=== PATIENT | female | born 1985 | race Caucasian/White ===

== ENCOUNTER 2018-11-26 19:15 | Observation (INO) | payer OTHER ==
[~2018-11-26] VITALS: Ht 158 cm; Wt 80.7 kg
[~2018-11-26 19:15] MED LIST: IBUP-2070 PO; PERCT PO; PNV1TABL54 PO
[2018-11-26 20:00] VITALS: BP 120/70
== END 2018-11-26 21:37 | disposition home or self-care (01) ==
LOC: 4S 19:15 → INTOOBSV 19:15 → OBSVTOIN 19:15
PROVIDERS: ADMIT Obstetrics & Gynecology; ATTEND Obstetrics & Gynecology
DX: O62.9 Abnormality of forces of labor, unspecified (principal); O09.523 Supervision of elderly multigravida, third trimester; Z3A.39 39 weeks gestation of pregnancy

== ENCOUNTER 2018-11-27 06:07 | Inpatient (IN) | payer OTHER ==
[~2018-11-27] VITALS: Ht 157.5 cm; Wt 80.7 kg
[~2018-11-27 06:07] MED LIST changes: +RINGERS SOLUTION,LACTATED 1,000 ML IV ONE
[2018-11-27] MEDS ORDERED: CITRIC ACID/SODIUM CITRATE 30 ML SOLUTION UDCUP PO ONE (06:15)
[2018-11-27] MEDS ORDERED: METOCLOPRAMIDE HCL 5 MG/ML 2 ML VIAL IVP ONE (06:15)
[2018-11-27 06:55] LABS: BASOPHILS % (AUTO) 0.4 % (0.0-2.0); EOSINOPHILS % (AUTO) 2.8 % (1.0-6.0); HEMATOCRIT 38.3 % (36-46); HEMOGLOBIN 12.2 g/dL (12.0-16.0); LYMPHOCYTES # (AUTO) 2.3 K/uL (1.0-4.8); LYMPHOCYTES % (AUTO) 26.1 % (22.0-44.0); MEAN CORPUSCULAR HEMOGLOBIN 28.2 pg (26.0-34.0); MEAN CORPUSCULAR HGB CONC 31.9 G/dL (31.0-37.0); MEAN CORPUSCULAR VOLUME 89 fL (80-100); MONOCYTES # (AUTO) 0.6 K/uL (0.1-1.0); MONOCYTES % (AUTO) 7.1 % (2.0-9.0); NEUTROPHILS # (AUTO) 5.7 K/uL (1.8-7.7); NEUTROPHILS % (AUTO) 63.6 % (40.0-70.0); PLATELET COUNT (AUTO) 239 K/uL (150-450); RED BLOOD CELL COUNT(AUTO) 4.33 MIL/uL (4.00-5.20); RED CELL DISTRIBUTION WIDTH 14.8 % (11.5-14.5)
[2018-11-27] MEDS ORDERED: ACETAMINOPHEN 1000 MG/ISO-OSM 100 ML IV ONE (07:12)
[2018-11-27] MEDS ORDERED: FentaNYL CITRATE-PF 100 MCG/2 ML VIAL IVP PRN ×2 (08:30)
[2018-11-27] MEDS ORDERED: ONDANSETRON HCL 4 MG/2 ML VIAL IVP PRN (08:30)
[2018-11-27] MEDS ORDERED: MEPERIDINE-PF 25 MG/ML VIAL IVP PRN (08:30)
[2018-11-27] MEDS ORDERED: NALOXONE HCL 0.4 MG/ML VIAL IVP PRN (08:30)
[2018-11-27] MEDS ORDERED: DiphenhydrAMINE HCL 50 MG/ML VIAL IVP PRN (08:30)
[2018-11-27] MEDS ORDERED: OxyCODONE HCL/ACETAMINOPHEN 10-325 MG TABLET PO PRN (08:30)
[2018-11-27] MEDS ORDERED: HYDROmorphone 2 MG/ML SYRINGE IVP PRN ×2 (08:30)
[2018-11-27] MEDS ORDERED: LANOLIN 7 GM OINTMENT TP PRN (09:00)
[2018-11-27] MEDS ORDERED: ACETAMINOPHEN/CODEINE 300-30 MG TABLET PO PRN (09:00)
[2018-11-27] MEDS: DEXTROSE 5%-0.45% SODIUM CHL 1,000 ML IV SCH ×3 (14:25→23:34)
[2018-11-27] MEDS: ACETAMINOPHEN 500 MG TABLET PO SCH ×2 (14:29→20:20)
[2018-11-27] MEDS ORDERED: METHYLERGONOVINE MALEATE 0.2 MG/ML VIAL ONE (19:31)
[2018-11-27] MEDS: MAGNESIUM HYDROXIDE SUSPENSION 30 ML UDCUP PO SCH (21:00)
[2018-11-28] MEDS: IBUPROFEN 800 MG TABLET PO SCH ×4 (02:03→22:52)
[2018-11-28] MEDS: ACETAMINOPHEN 500 MG TABLET PO SCH (02:32)
[2018-11-28] MEDS: DEXTROSE 5%-0.45% SODIUM CHL 1,000 ML IV SCH (04:01)
[2018-11-28] MEDS ORDERED: FentaNYL CITRATE-PF 100 MCG/2 ML VIAL IVP ONE (05:44)
[2018-11-28] MEDS ORDERED: EPHEDrine SULFATE 50 MG/ML VIAL IM ONE (05:44)
[2018-11-28] MEDS ORDERED: MORPHINE SULFATE/PF 0.5 MG/ML 10 ML AMP IVP ONE (05:44)
[2018-11-28] MEDS ORDERED: ONDANSETRON HCL 4 MG/2 ML VIAL IVP ONE (05:44)
[2018-11-28] MEDS ORDERED: OXYTOCIN 10 UNITS/ML VIAL IM ONE (05:44)
[2018-11-28] MEDS ORDERED: 0.9% SODIUM CHLORIDE 10 ML VIAL IVP ONE (05:44)
[2018-11-28] MEDS: MAGNESIUM HYDROXIDE SUSPENSION 30 ML UDCUP PO SCH ×2 (09:01→21:32)
[2018-11-28] MEDS: ACETAMINOPHEN/CODEINE 300-30 MG TABLET PO PRN (14:15)
[2018-11-29] MEDS: IBUPROFEN 800 MG TABLET PO SCH ×3 (05:39→20:36)
[2018-11-29] MEDS: MAGNESIUM HYDROXIDE SUSPENSION 30 ML UDCUP PO SCH (13:48)
[2018-11-30] MEDS: IBUPROFEN 800 MG TABLET PO SCH ×2 (02:15→11:00)
[2018-11-30] MEDS: ACETAMINOPHEN 500 MG TABLET PO SCH (02:15)
[2018-11-30] MEDS ORDERED: IBUP-2070 PO (09:56)
[2018-11-30] MEDS ORDERED: PERCT PO (09:57)
[2018-11-30] MEDS: MAGNESIUM HYDROXIDE SUSPENSION 30 ML UDCUP PO SCH (11:00)
[2018-11-30] MEDS: ACETAMINOPHEN/CODEINE 300-30 MG TABLET PO PRN (11:00)
== END 2018-11-30 13:35 | disposition home or self-care (01) | DRG 788 ==
LOC: 4S 06:07 → PREOBSVTOIN 12-10 06:37
PROVIDERS: ADMIT Obstetrics & Gynecology; ATTEND Obstetrics & Gynecology
PROC: 10D00Z1 Extraction of Products of Conception, Low, Open Approach (ICD-10-PCS; principal; 2018-11-27)
DX: O34.211 Maternal care for low transverse scar from previous cesarean delivery (principal); Z3A.40 40 weeks gestation of pregnancy; Z37.0 Single live birth; Z88.1 Allergy status to other antibiotic agents
CPT/HCPCS: 86850; 86900; 86901; 87081; J0131; J0690; J2175; J2210; J2274; J2405; J2590; J2765; J3010; J3490